=== PATIENT | male | born 1980 | race American Indian/Alaskan Native ===

== ENCOUNTER 2016-06-23 12:46 | Emergency (ER) | payer SELFPAY ==
[2016-06-23 13:13] VITALS: BP 142/100
--- NOTE | 2016-06-23 14:15 | XRay Report ---
RIGHT SHOULDER, 3 views: History: Right shoulder pain, injury. Routine views demonstrate normal bony and soft tissue structures with normal joint alignment of the shoulder. IMPRESSION: Unremarkable right shoulder films.
--- NOTE | 2016-06-23 16:33 | Emergency Department Report ---
Upper Extremity - HPI Chief Complaint: Shoulder Injury Stated Complaint: NECK/SHOULDER PAIN Time Seen by Provider: 06/23/16 15:06 Upper Extremity: Right Shoulder (patient here complaining of right shoulder pain radiating down to his right shoulder since last night. Patient reports that he helped move furniture yesterday and he took Tylenol 3 last night but it didn't take the pain away completely. He denies any history of high blood pressure blood pressure is 142/100 reports his pain is 10 out of 10. Denies any direct trauma to his shoulder. He said it's mostly in his) Occurred When: 1 Day Mechanism: Unsure (lifting heavy object) Severity: severe Symptoms: Yes Pain with Movement (right shoulder), Yes Limited Range of Movement (right shoulder), No Deformity, No Numbness, No Weakness, No Swelling, No Bruising/Ecchymosis, No Laceration or Abrasion Other History: Patient here reported that he is having right shoulder pain after lifting heavy furniture yesterday. He said he took Tylenol 3 last night but only gave him some relief. He is reporting pain 10 out of 10. Patient was brought to the hospital by [facility]. He said the pain is located right side of his neck and radiating into his right shoulder since last night. Denies any neck stiffness or fever. Denies any direct trauma. Denies any numbness or tingling. He describes the pain as achy. ED Review of Systems ROS: Stated complaint: NECK/SHOULDER PAIN Other details as noted in HPI Comment: All other systems reviewed and negative Constitutional: denies: chills, fever Respiratory: no symptoms reported Cardiovascular: denies: chest pain, palpitations, edema, syncope Gastrointestinal: denies: nausea, vomiting Musculoskeletal: arthralgia. denies: back pain Skin: denies: rash Neurological: denies: headache, weakness, numbness, paresthesias, confusion, abnormal gait, vertigo ED Past Medical Hx - Past Medical History Previous Medical History?: Yes Hx Seizures: Yes Additional medical history: SCOLEOSIS - Surgical History Past Surgical History?: No - Family History Family history: hypertension - Social History Smoking Status: Current Every Day Smoker Substance Use Type: None - Medications Home Medications: Home Medications Medication Instructions Recorded Confirmed Last Taken Type Cyclobenzaprine [Flexeril] 10 mg PO TID PRN #15 tablet 06/23/16 Unknown Rx traMADol [Ultram] 50 mg PO Q6HR PRN #20 tablet 06/23/16 Unknown Rx Upper Extremity Exam - Exam General: Vital signs noted. No distress. Alert and acting appropriately. This is a 36-year-old male well-nourished well-developed in no acute distress. Head and Torso: Yes Neck Tenderness (right lateral neck muscle), No HEENT Abnormality, No Chest/Lungs Abnormality, No Abdominal Tenderness, No Back Tenderness Shoulder Exam: Yes Shoulder Tenderness (right AC joint area), Yes AC Joint Tenderness (right shoulder), No Clavicle Tenderness, No Normal Range of Motion in Shoulder (patient with full range of motion to shoulder but he said when he moves his shoulder it hurts at his neck and AC joint area), No Shoulder Deformity Arm Exam: No Arm/Humerus Tenderness, No Arm Deformity Elbow: Yes Normal Range of Motion in Elbow, No Elbow Tenderness, No Elbow Deformity Forearm: No Forearm Tenderness, No Forearm Deformity, No Pain with Pronation, No Pain with Supination Wrist: Yes Normal ROM in Wrist, No Wrist Tenderness, No Wrist Deformity, No Snuffbox Tenderness, No Pain with Axial Thumb Compression Hand: Yes Normal ROM in Digit(s), No Hand Tenderness, No Hand Deformity, No Digit Tenderness, No Digit(s) Deformity, No Tendon Dysfunction CMS Exam: Yes Normal Distal Pulses, Yes Normal Capillary Refill, Yes Normal Distal Sensation, No Broken Skin ED Course Vital Signs 06/23/16 13:09 Temperature 98.7 F Pulse Rate 84 Respiratory 18 Rate Blood Pressure 142/100 O2 Sat by Pulse 100 Oximetry - Reevaluation(s) Reevaluation #1: 06/23/16 17:33 Patient given Percocet 5/325 mg 2 tablets emergency room which relieved this pain. ED Medical Decision Making - Radiology Data Radiology results: report reviewed X-ray of right shoulder revealed normal exam - Medical Decision Making ED course: Discussed with patient that he has neck muscle strain and that his x- ray of his right shoulder reveal unremarkable or right shoulder. I discussed with him while he was moving heavy furniture this could've happened. Pain started after he moved furniture. given Percocet 5/325 mg 2 tablets emergency room for pain which relieved his pain. I discussed patient that he will need to follow-up with his primary care in 3 days and if he does not have one that he will need to follow-up with outside Medical Center. I discussed diagnosis and treatment plan the patient any voice understanding. Patient discharged home with prescription for tramadol and Flexeril. I also discussed with him that his blood pressure was elevated and this could be due to pain so he will need to monitor his blood pressure and if it remains elevated that he will need to follow-up for management. Smoking cessation encouraged Critical care attestation.: If time is entered above; I have spent that time in minutes in the direct care of this critically ill patient, excluding procedure time. ED Disposition Clinical Impression: Arthralgia of right shoulder region, Elevated blood pressure reading, Encounter for smoking cessation counseling Neck muscle strain Qualifiers: Encounter type: initial encounter Qualified Code(s): S16.1XXA - Strain of muscle, fascia and tendon at neck level, initial encounter Disposition: DISCHARGED TO HOME OR SELFCARE Is pt being admited?: No Does the pt Need Aspirin: No Condition: Stable Instructions: Muscle Strain (ED), Arthralgia (ED), Hypertension (ED), RICE Therapy (ED), How to Stop Smoking (ED) Additional Instructions: Please rest, ice, elevate area for the next 72 hours Take medication as prescribed Prescriptions: Cyclobenzaprine [Flexeril] 10 mg PO TID PRN #15 tablet PRN Reason: Muscle Spasm traMADol [Ultram] 50 mg PO Q6HR PRN #20 tablet PRN Reason: Pain Referrals: [facility] [Outside] - 2-3 Days PAM RIVAS MD [Staff Physician] - 2-3 Days Forms: Work/School Release Form(ED)
[2016-06-23] MEDS ORDERED: PERCOCET 5/325 PO ONE (16:34)
== END 2016-06-23 17:51 | disposition home or self-care (01) ==
LOC: ED 12:46
DX: S16.1XXA Strain of muscle, fascia and tendon at neck level, initial encounter (principal); M25.511 Pain in right shoulder; Z71.6 Tobacco abuse counseling; R03.0 Elevated blood-pressure reading, without diagnosis of hypertension; F17.200 Nicotine dependence, unspecified, uncomplicated; X50.0XXA Overexertion from strenuous movement or load, initial encounter; Y93.89 Activity, other specified; Y99.9 Unspecified external cause status; Y92.89 Other specified places as the place of occurrence of the external cause